=== PATIENT | female | born 1945 | race Caucasian/White ===

== ENCOUNTER 2016-08-29 18:44 | Emergency (ER) | payer MEDICARE ==
[2016-08-29 20:40] VITALS: BP 153/82
== END 2016-08-29 21:17 | disposition left against medical advice (07) ==
LOC: ED 18:44
DX: R05 Cough (principal); Z53.21 Procedure and treatment not carried out due to patient leaving prior to being seen by health care provider
CPT/HCPCS: 99281

== ENCOUNTER 2016-11-28 07:38 | Day surgery (SDC) | payer MEDICARE ==
[~2016-11-28 07:38] MED LIST: Acetaminophen TAB* 325 MG PO PRN; Buffered Lidocaine 1% SYRIN* 3 ML/SYR SYRINGE INTRADERM ONE
[2016-11-28] MEDS ORDERED: Midazolam* 1 MG/ML 5 ML VIAL (5 MG) ONE (08:50)
[2016-11-28 10:39] VITALS: BP 132/75
[2016-11-28] MEDS ORDERED: Flurbiprofen 0.03% OPTH.SOL* 2.5 ML BTL ONE (13:41)
[2016-11-28] MEDS ORDERED: Proparacaine 0.5% OPHTH.SOL* 15 ML BTL ONE (13:41)
[2016-11-28] MEDS ORDERED: Phenylephrine 2.5% OPTH.SOL* 2 ML BTL ONE (13:41)
[2016-11-28] MEDS ORDERED: Lidocaine 2% EPI 1:200000 MPF* 20 ML VIAL ONE (13:41)
[2016-11-28] MEDS ORDERED: acetaZOLAMIDE TAB* 250 MG ONE (13:41)
[2016-11-28] MEDS ORDERED: Cyclopentolate 1% OPTH.SOL* 2 ML BTL ONE (13:41)
[2016-11-28] MEDS ORDERED: Neomycin/Polymy/Dex OPTH.SUSP* MAXITROL 0.1% 5 ML ONE (13:41)
[2016-11-28] MEDS ORDERED: Povidone Iodine 5% OPTH* 30 ML BTL ONE (13:41)
[2016-11-28] MEDS ORDERED: Lidocaine 1% MPF* 2 ML VIAL ONE (13:41)
--- NOTE | 2016-11-28 13:45 | OP ---
DATE OF OPERATION: 11/28/16 - [facility] DATE OF : 49 SURGEON: Romulo Cruz M.D. PREOPERATIVE DIAGNOSIS: Cataract, left eye. POSTOPERATIVE DIAGNOSIS: Cataract, left eye. OPERATIVE PROCEDURE: Phacoemulsification, left eye with IOL. DESCRIPTION OF PROCEDURE: The patient was brought to the operating room after being given 1/2% Alcaine with epinephrine drops in the preoperative area. The eye was prepped and draped in the usual sterile fashion. Sterile drape and eyelid speculum were placed. Again, topical 1/2% Alcaine with epinephrine was given. A paracentesis incision was made at the 3 o'clock position with the No.75 blade. Clear cornea incision 2.2 x 2.2-mm was created at the 6 o'clock position starting at the anterior limbus using the 2.2-mm keratome. The anterior chamber was irrigated with 0.4 mL of 1% non-preservative intracameral lidocaine and filled with DisCoVisc. A capsulorrhexis was completed using the cystotome and the Utrata forceps. Hydrodissection was performed with balanced salt solution. The lens nucleus was removed with the Phacoemulsification handpiece without incident. Cortex was removed with the irrigation-aspiration handpiece. The capsular bag was re-inflated using DisCoVisc and an [id number] 18.5 Implant was inserted with the shooter. The irrigation-aspiration handpiece was used to remove all residual DisCoVisc. The eye was refilled with balanced salt solution and the wound checked and found to be watertight. Topical Maxitrol drops were given. [id number]/[facility] #: [id number] [facility] HOSPITALMaxim
== END 2016-11-28 10:37 | disposition home or self-care (01) ==
LOC: OREAST 07:38
PROVIDERS: ATTEND Specialist
DX: H25.12 Age-related nuclear cataract, left eye (principal); H43.393 Other vitreous opacities, bilateral; I10 Essential (primary) hypertension; E03.9 Hypothyroidism, unspecified; M19.90 Unspecified osteoarthritis, unspecified site
CPT/HCPCS: A9270-GY; J2250; V2632

== ENCOUNTER 2018-04-06 22:42 | Emergency (ER) | payer MEDICARE ==
[2018-04-06] MEDS ORDERED: Morphine INJ** 4 MG/ML 1 ML CARPUJECT IV ONE (23:11)
[2018-04-06] MEDS ORDERED: Ondansetron INJ* 2 MG/ML VIAL IV ONE (23:11)
--- NOTE | 2018-04-06 23:26 | ED ---
GI/ HPI - HPI Summary HPI Summary: 72-year-old female presents with left sided pain since 2 hours ago. She states that it started in her left flank and wraps around to her front. She denies any urgency frequency hematuria or dysuria. She states she has a history of kidney stones seen on an MRI. She has not seen urology and has never had a kidney stone move before. She admits to nausea but denies any vomiting. She admits to diarrhea all day. She denies any blood in her stool. No one else sick. She denies any fevers. Has history of thyroid disorder and high blood pressure. Denies any chest pain or shortness breath. denies any injury. no loss of bowel or bladder or saddle anaesthesia. no hx of diverticulitis or colitis. she has hx of hysterectomy and appendectomy. - History of Current Complaint Chief Complaint: EDFlankPain Time Seen by Provider: 04/06/18 23:04 Stated Complaint: BACK PAIN/DIARRHEA Pain Intensity: 6 - Allergy/Home Medications Allergies/Adverse Reactions: Allergies Allergy/AdvReac Type Severity Reaction Status Date / Time aspirin Allergy Unknown Verified 04/06/18 22:53 Reaction Details Sulfa (Sulfonamide Allergy Rash Verified 04/06/18 22:53 Antibiotics) PMH/Surg Hx/FS Hx/Imm Hx Endocrine/Hematology History: Reports: Hx Thyroid Disease - HYPO Denies: Hx Diabetes Cardiovascular History: Reports: Hx Hypertension - meds Denies: Hx Pacemaker/ICD Respiratory History: Reports: Hx Sleep Apnea Denies: Hx Asthma GI History: Reports: Hx Gastroesophageal Reflux Disease - frequent heartburn, Hx Hiatal Hernia, Other GI Disorders - cholelithlisis Denies: Hx Irritable Bowel - has frequent diarrhea History: Reports: Hx Kidney Stones - no surgery Musculoskeletal History: Reports: Hx Arthritis Sensory History: Reports: Hx Cataracts - bilat eyes, Hx Contacts or Glasses - glasses Denies: Hx Hearing Aid Opthamlomology History: Reports: Hx Cataracts - bilat eyes, Hx Contacts or Glasses - glasses Psychiatric History: Reports: Hx Anxiety, Hx Depression Denies: Hx Panic Disorder - anxiety] - Surgical History Surgery Procedure, Year, and Place: appy, hysterectomy Hx Anesthesia Reactions: No Infectious Disease History: No Infectious Disease History: Denies: Traveled Outside the [place] in Last 30 Days - Family History Known Family History: Positive: Hypertension - Social History Alcohol Use: None Substance Use Type: Reports: None Smoking Status (MU): Never Smoked Tobacco Review of Systems Negative: Fever Negative: Chest Pain Negative: Shortness Of Breath Positive: Abdominal Pain, Diarrhea, Nausea. Negative: Vomiting All Other Systems Reviewed And Are Negative: Yes Physical Exam Triage Information Reviewed: Yes Vital Signs On Initial Exam: Initial Vitals Temp Pulse Resp BP Pulse Ox 99.2 F 80 20 177/112 98 04/06/18 22:50 04/06/18 22:50 04/06/18 22:50 04/06/18 22:50 04/06/18 22:50 Vital Signs Reviewed: Yes Appearance: Positive: Well-Appearing Skin: Positive: Warm, Dry Head/Face: Positive: Normal Head/Face Inspection Eyes: Positive: Normal, Conjunctiva Clear ENT: Positive: Pharynx normal Respiratory/Lung Sounds: Positive: Clear to Auscultation, Breath Sounds Present Cardiovascular: Positive: Normal, RRR Abdomen Description: Positive: Soft, CVA Tenderness (L), Other: - tenderness LUQ Musculoskeletal: Positive: Normal Neurological: Positive: Normal Psychiatric: Positive: Normal Diagnostics - Vital Signs Vital Signs Temp Pulse Resp BP Pulse Ox 04/06/18 22:50 99.2 F 80 20 177/112 98 - Laboratory Result Diagrams: 04/06/18 23:33 04/06/18 23:33 Lab Statement: Any lab studies that have been ordered have been reviewed, and results considered in the medical decision making process. - CT abd CT Interpretation: No Acute Changes - IMPRESSION: 1. Appendectomy. 2. Hysterectomy. 3. Bilateral renal cysts. 4. Small hiatus hernia. CT Interpretation Completed By: Radiologist Re-Evaluation - Re-Evaluation First Eval Re-Evaluation Time: 01:28 Comment: patient is now vomiting, will give more zofran and toradol. Second Eval Re-Evaluation Time: 01:54 Change: Improved Comment: pain free. urine has blood and crystals so discussed may have passed kidney stone as not seen on CT. GIGU Course/Dx - Course Course Of Treatment: 72-year-old female presents with left sided pain since 2 hours ago. She states that it started in her left flank and wraps around to her front. She denies any urgency frequency hematuria or dysuria. She states she has a history of kidney stones seen on an MRI. She has not seen urology and has never had a kidney stone move before. She admits to nausea but denies any vomiting. She admits to diarrhea all day. She denies any blood in her stool. No one else sick. She denies any fevers. Has history of thyroid disorder and high blood pressure. Denies any chest pain or shortness breath. denies any injury. no loss of bowel or bladder or saddle anaesthesia. no hx of diverticulitis or colitis. she has hx of hysterectomy and appendectomy. on exam has tenderness left CVA. tenderness LUQ. no rebound. wbc 11.1. electrolytes normal. crp normal. CT shows bilateral renal cysts. discussed with patient do not have reason for pain or diarrhea on CT. could be gastroenteritis as developed vomiting in ED. urine shows crystal and blood so could have passed a stone recently. will give zofran for nausea. patient did not take blood pressure meds today so will take when gets home. patient understand and agrees with plan. - Diagnoses Differential Diagnoses - Female: Diverticulitis, Pyelonephritis, Urinary Tract Infection, Ureteral Calculi Provider Diagnoses: Flank pain, Diarrhea Discharge - Sign-Out/Discharge Documenting (check all that apply): Patient Departure - Discharge Plan Condition: Good Disposition: HOME Patient Education Materials: Flank Pain (ED) Referrals: Casey Cortes MD [Primary Care Provider] - Fco Cornell MD [Medical Doctor] - Additional Instructions: urine looks like may have passed kidney stone Drink small amounts of fluid as tolerated When able to eat follow BRAT diet: Bananas, rice, applesauce, toast take zofran every 6 hours as needed for nausea Take ibuprofen or Tylenol for pain as needed every 6 hours Follow up with primary within 5 days a referral was given for urology Return to ED if develop any new or worsening symptoms - Billing Disposition and Condition Condition: GOOD Disposition: Home
[2018-04-06 23:42] LABS: ABS Basophils 0 10^3/ul (0-0.2); ABS Eosinophils 0.2 10^3/ul (0-0.6); ABS Lymphocytes 2.1 10^3/ul (1.0-4.8); ABS Monocytes 0.7 10^3/ul (0-0.8); ABS Neutrophils 8.1 10^3/ul (1.5-7.7); ABS Nucleated RBC 0 10^3/ul; Eosinophil % 1.7 % (0-6); Hematocrit 45 % (35-47); Hemoglobin 15.1 g/dl (12.0-16.0); Lymphocyte % 18.7 % (25-47); Mean Corpuscular HGB Conc 34 g/dl (31-36); Mean Corpuscular Hemoglobin 31 pg (27-31); Mean Corpuscular Volume 92 fL (80-97); Mean Platelet Volume 9.5 um3 (7.4-10.4); Nucleated Red Blood Cells % 0.1; Platelet Count 174 10^3/ul (150-450); Red Blood Count 4.88 10^6/ul (4.00-5.40); Red Cell Distribution Width 14 % (10.5-15); White Blood Count 11.1 10^3/ul (3.5-10.8)
[2018-04-06] MEDS ORDERED: Morphine INJ* 2 MG/ML 1 ML SYRINGE (TWO MG - NEW SYRINGE VERSION) ONE (23:45)
[2018-04-06 23:59] LABS: EGFR Non-African American 58.2 (>60)
[2018-04-07] MEDS ORDERED: Iodixanol* (CONTRAST) 320 MG/ML 100 ML SDV IV ONE (00:07)
[2018-04-07] MEDS ORDERED: NS 0.9% 1000 ML* 1,000 ML IV ONE (00:11)
--- NOTE | 2018-04-07 01:15 | RAD ---
EXAM: CT Abdomen and Pelvis With Intravenous Contrast CLINICAL HISTORY: 72 years old, female; Pain; Abdominal pain; Flank; Left; Additional info: Left flank/abd pain, diarrhea TECHNIQUE: Axial computed tomography images of the abdomen and pelvis with intravenous contrast. All CT scans at this facility use at least one of these dose optimization techniques: automated exposure control; mA and/or kV adjustment per patient size (includes targeted exams where dose is matched to clinical indication); or iterative reconstruction. Coronal and sagittal reformatted images were created and reviewed. CONTRAST: 141 mL of VISi administered intravenously. COMPARISON: A/P WO CT ABD/PEL W/O 06/27/2012 10:53 AM FINDINGS: Lung bases: Unremarkable. No mass. No consolidation. Mediastinum: There is a small hiatus hernia, also present on the previous study. ABDOMEN: Liver: Unremarkable. No mass. Gallbladder and bile ducts: Unremarkable. No calcified stones. No ductal dilation. Pancreas: Unremarkable. No mass. No ductal dilation. Spleen: Unremarkable. No splenomegaly. Adrenals: Unremarkable. No mass. Kidneys and ureters: There are small right renal cortical cysts, also present on the previous study. There are 2 left renal cysts with the larger one measuring approximately 9.2 cm, also present on previous study. Stomach and bowel: Unremarkable. No obstruction. No mucosal thickening. PELVIS: Appendix: Pericecal sutures are noted, consistent with appendectomy, also present on the previous study. Bladder: The bladder is not distended and evaluation is limited but no gross bladder pathology is identified. Reproductive: The patient is status post hysterectomy, also present on the previous study. ABDOMEN and PELVIS: Intraperitoneal space: Unremarkable. No free air. No significant fluid collection. 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 No acute fracture. No dislocation. Soft tissues: Unremarkable. Vasculature: Arteriosclerotic changes are identified. No abdominal aortic aneurysm. Lymph nodes: Unremarkable. No enlarged lymph nodes. IMPRESSION: 1. Appendectomy. 2. Hysterectomy. 3. Bilateral renal cysts. 4. Small hiatus hernia.
[2018-04-07] MEDS ORDERED: Ketorolac INJ* 30 MG/ML 1 ML VIAL IV PUSH ONE (01:18)
[2018-04-07] MEDS ORDERED: Ondansetron INJ* 2 MG/ML VIAL IV ONE (01:27)
[2018-04-07 01:42] LABS: Urine Appearance Cloudy; Urine Blood 3+ (Negative); Urine Color Yellow; Urine Ketones Negative (Negative); Urine Protein Negative (Negative); Urine Red Blood Cell 2+(6-10/hpf) (Absent); Urine Specific Gravity 1.026 (1.010-1.030); Urine Urobilinogen Negative (Negative); Urine White Blood Cell Trace(0-5/hpf) (Absent)
[2018-04-07] MEDS ORDERED: Tamsulosin CAP* 0.4 MG PO ONE (01:46)
[2018-04-07] MEDS ORDERED: O ndansetron ODT 4MG 2TAB PRPK 4 MG PAK PO ONE (01:47)
[2018-04-07] MEDS ORDERED: Ondansetron ODT TAB* 4 MG ONE (02:25)
[2018-04-07 02:34] VITALS: BP 140/75
== END 2018-04-07 02:32 | disposition home or self-care (01) ==
LOC: ED 22:42
DX: R10.84 Generalized abdominal pain (principal); R19.7 Diarrhea, unspecified; M54.9 Dorsalgia, unspecified; Z88.6 Allergy status to analgesic agent; I10 Essential (primary) hypertension; R10.9 Unspecified abdominal pain
CPT/HCPCS: 36415; 74177; 80053; 81003; 81015; 83605; 83690; 85025; 86140; 87086; 96374; 96375; 99283; A9270-GY; J1885; J2270; J2405; Q9967

== ENCOUNTER → 2018-08-26 10:28 | Day surgery (SDC) | payer MEDICARE ==
[~2018-08-26 10:28] MED LIST changes: -Acetaminophen TAB* 325 MG PO PRN; -Buffered Lidocaine 1% SYRIN* 3 ML/SYR SYRINGE INTRADERM ONE; +Heparin 2 UNITS/ML IVPREMIX* 2,000 ML IV ONE; +Heparin(*) 1000 UNIT/ML 10 ML VIAL CATH LAB IV ONE; +Iohexol 350 (CONTRAST) 200 ML MDV IV ONE; +Lidocaine 1% INJ* 10 MG/ML 30 ML SDV ONE; +Midazolam* 1 MG/ML 10 ML VIAL (10 MG) ONE; +NS 0.9% 1000 ML* 1,000 ML IV SCH; +VERAPAMIL 2.5 MG/ML 2 ML VIAL ** 5 mg/2 ml ONE; +fentaNYL* 50 MCG/ML 2 ML VIAL (100 MCG VIAL) ONE; +nitroGLYCERIN DRIP* 25,000 MCG/250 ML BTL ONE
[2018-08-26 14:51] VITALS: BP 111/68
--- NOTE | 2018-08-26 20:56 | CATH ---
AMENDED REPORT TO CORRECT CC RECIPIENT CC: Dr. Casey Cortes; Dr. Keith; [facility] Financial Reporting Advisor, FAX [phone] * CATH REPORT: DATE OF PROCEDURE: 08/26/18 - [facility] CATH PRIMARY CARE PHYSICIAN: Dr. Casey Cortes. PIANO BENCH ASSEMBLER: Dr. Keith. PROCEDURES: Right radial artery access with ultrasound guidance, bilateral selective coronary cineangiography, left heart catheterization, left ventriculography. HISTORY: A 72-year-old woman with progressive limiting class II to III exertional dyspnea, stress imaging showed a moderate proximal anterior reversible defect. LV function is normal by echo. PROCEDURE ACCESS: Right radial artery. SHEATH: 6F Slender. MEDICATIONS: 1. Subcu lidocaine. 2. IV Versed. 3. IV fentanyl. 4. Heparin 3000 units. 5. Verapamil 3 mg. 6. Nitroglycerin 300 mcg IA. DIAGNOSTIC CATHETERS: 5F TIG4, 5FL4, 5F pigtail. HEMODYNAMICS: Initial AO 88/53, LV 113/5-15, no aortic valve gradient on pullback. ANGIOGRAPHY: RCA: The RCA is dominant, with a proximal rehman's crook, it has minimal luminal irregularity, supplies a moderate PDA, 2 smaller posterolaterals and ends with a large posterolateral. The RCA has no significant stenosis. Left main: The left main is normal in size, has minimal irregularity, no stenosis. LAD: The LAD is moderate, ends before the apex, it supplies a moderate mid diagonal, the LAD after the diagonal has a 20% to 30% stenosis, LAD ends at the apex, has no significant stenosis. Circumflex: The circumflex is moderate, not dominant, supplies single marginal branch which provides perfusion to the obtuse margin. The AV groove of circumflex ends with a small posterolateral branch. The circumflex has no significant stenosis. LV gram: Wall motion is normal, estimated LVEF 55% to 60%. CONCLUSION: 1. No significant obstructive coronary disease, false positive nuclear imaging study. 2. Normal left-sided hemodynamics. 3. Normal LV systolic function. 4. Successful right radial artery access. [id number]/[facility] #: [id number] MTDD
== END | disposition home or self-care (01) ==
LOC: CHICATH 10:28
PROVIDERS: ATTEND Internal Medicine Cardiovascular Disease
DX: R94.39 Abnormal result of other cardiovascular function study (principal); R06.09 Other forms of dyspnea; E66.9 Obesity, unspecified; E03.9 Hypothyroidism, unspecified; I10 Essential (primary) hypertension; K21.9 Gastro-esophageal reflux disease without esophagitis; F41.8 Other specified anxiety disorders; E74.39 Other disorders of intestinal carbohydrate absorption; Z82.49 Family history of ischemic heart disease and other diseases of the circulatory system
CPT/HCPCS: 93458; 99156; 99157; J1644; J2250; J3010

== ENCOUNTER 2019-01-12 05:52 | Inpatient (IN) | payer MEDICARE ==
[~2019-01-12 05:52] MED LIST changes: -Heparin 2 UNITS/ML IVPREMIX* 2,000 ML IV ONE; -Heparin(*) 1000 UNIT/ML 10 ML VIAL CATH LAB IV ONE; -Iohexol 350 (CONTRAST) 200 ML MDV IV ONE; -Lidocaine 1% INJ* 10 MG/ML 30 ML SDV ONE; -Midazolam* 1 MG/ML 10 ML VIAL (10 MG) ONE; -NS 0.9% 1000 ML* 1,000 ML IV SCH; +Tranexamic Acid 1,000 MG in NS 0.9% 50 ML* (outpatient use) IV SCH; -VERAPAMIL 2.5 MG/ML 2 ML VIAL ** 5 mg/2 ml ONE; -fentaNYL* 50 MCG/ML 2 ML VIAL (100 MCG VIAL) ONE; -nitroGLYCERIN DRIP* 25,000 MCG/250 ML BTL ONE
--- OUTSIDE RECORDS SUMMARY | 2019-01-12 05:55 | XMS REPORT | Continuity of Care Document ---
:1945 External Reference #:[id number] Author Name Katelynn Randlyn Care Team Providers Name Role Phone Casey Cortes MD Primary Care Physician Unavailable Payers Date Identification Numbers Payment Provider Subscriber Policy Number: [id number] Medicare Hoda Mckeon PayID: [id number] [address] [place] [address] Effective: 2012 Policy Number: [id number] Medicare Hoda Mckeon Expires: 2018 PayID: [id number] [address] [place] [address] Policy Number: [id number] [facility] Hoda Mckeon PayID: [id number] [address] [place] [address] Problems Active Problems Provider Date Disturbance in sleep behavior María Castillo MD Onset: 08/15/2015 Obesity María Castillo MD Onset: 08/15/2015 Obstructive sleep apnea syndrome Yuliana Monge DNP, RN, Onset: 09/16/2015 [facility] Hypersomnia Yuliana Monge DNP, RN, Onset: 09/16/2015 [employer] Closed fracture of nasal bones Pierce Perez M.D. Onset: 07/15/2017 Preoperative cardiovascular Tia Keith M.D. Onset: 07/15/2018 examination Family history of congenital anomaly Tia Keith M.D. Onset: 07/15/2018 of cardiovascular system Localized, primary osteoarthritis Ole Fiore M.D. Onset: 12/17/2018 Family History Date Family Member(s) Observation Comments Father Kidney stone, HTN Father Parkinson's Mother Diabetes Type II Siblings Sister thyroid nodule Siblings DM2 Siblings 2 Siblings Brother and sister; brother healthy Social History Type Date Description Comments Sex Unknown Marital Status Lives With spouse Occupation retired Tobacco Use Start: Unknown Never Smoked Cigarettes Tobacco Use Start: Unknown Never Smoked Cigars Tobacco Use Start: Unknown Never Smoked A Pipe Smoking Status Reviewed: 01/09/19 Never Smoked A Pipe Smokeless Tobacco Never Used Smokeless Tobacco ETOH Use Denies alcohol use Tobacco Use Start: Unknown Patient has never smoked Recreational Drug Use Denies Drug Use Exercise Type/Frequency Does not exercise Allergies, Adverse Reactions, Alerts Active Allergies Reaction Severity Comments Date Sulfa Antibiotics 11/11/2013 Aspirin 11/11/2013 Medications Active Medications SIG Qnty Indications Ordering Provider Date Zinc 0nce daily 30tabs Tia Keith, 07/15/2018 50mg Tablets MMichael Flonase Allergy Relief spray 1 spray in Unknown 01/02/2016 each nostril 50mcg/Act Suspension twice daily Centrum Silver 1 by mouth every Unknown 08/14/2015 Tablets day Levothyroxine Sodium 1 by mouth every 90tabs Unknown day 175mcg Tablets Sertraline HCL 1.5 by mouth 90tabs Unknown 100mg every day Tablets Losartan 1 by mouth every Unknown Potassium/Hydrochlorot day hiazide 50-12.5mg Tablets Amlodipine Besylate 1 by mouth every Unknown 5mg day Tablets Loperamide HCL take 1 capsule Unknown 2mg by mouth twice Capsules per day before meals prn Oxybutynin Chloride 1 tab PO bid Unknown 5mg Tablets History Medications Lisinopril-Hydrochlorothiazide 1 by mouth 90tabs Unknown 08/14/2015 - 20-12.5mg Tablets every day 07/09/2017 Vitamin B Super Maxi Complex one every day Unknown 08/14/2015 - my mouth 09/01/2018 Aleve 220mg as needed Unknown 08/14/2015 - Tablets 07/07/2017 Loratadine 10mg once a day for 60caps Unknown 2015 - Capsules allergies as 06/11/2018 needed Flexeril 10mg 1 po tid prn 60tabs Ole 09/17/2012 - Tablets Adebayo, 08/14/2015 Cem Meclizine HCL three times a 12tabs Unknown - 12.5mg Tablets day as needed 07/14/2017 Zinc Chelated 1 tab daily Unknown - Tablets 06/10/2018 Medications Administered in Office Medication SIG Qnty Indications Ordering Provider Date Technetium TC 99M TetrofBrendan erickson M.D. 08/12/2018 Unit Dose Up To 40 Millicuries Injection Vital Signs Date Vital Result Comment 01/09/2019 8:42am Height 62.50 inches 5'2.50" Weight 245.00 lb Heart Rate 72 /min BP Systolic Sitting 120 mmHg Rue(forearm) regular cuff BP Diastolic Sitting 76 mmHg Rue(forearm) regular cuff Respiratory Rate 16 /min O2 % BldC Oximetry 96 % BMI (Body Mass Index) 44.1 kg/m2 12/17/2018 8:50am Height 62.50 inches 5'2.50" Weight 242.25 lb Heart Rate 78 /min BP Systolic 128 mmHg BP Diastolic 78 mmHg Respiratory Rate 14 /min Pain Level 2 BMI (Body Mass Index) 43.6 kg/m2 09/18/2018 11:27am Height 63 inches 5'3" Weight 249.00 lb Heart Rate 68 /min BP Systolic Sitting 144 mmHg BP Diastolic Sitting 92 mmHg Respiratory Rate 16 /min O2 % BldC Oximetry 98 % BMI (Body Mass Index) 44.1 kg/m2 09/02/2018 11:42am Height 63 inches 5'3" Weight 253.75 lb Heart Rate 70 /min BP Systolic Sitting 110 mmHg left lower fore arm BP Diastolic Sitting 70 mmHg left lower fore arm BP Systolic Standing 108 mmHg left lower for arm BP Diastolic Standing 70 mmHg left lower for arm Respiratory Rate 14 /min BMI (Body Mass Index) 44.9 kg/m2 Ejection Fraction 55-60% echo. 07/22/18 08/22/2018 1:54pm Height 63 inches 5'3" Weight 254.00 lb with shoes Heart Rate 82 /min BP Systolic Sitting 130 mmHg Lue lg cuff BP Diastolic Sitting 80 mmHg Lue lg cuff BP Systolic Standing 124 mmHg Lue lg cuff BP Diastolic Standing 80 mmHg Lue lg cuff Respiratory Rate 18 /min BMI (Body Mass Index) 45.0 kg/m2 Ejection Fraction 55-60% date 07/22/18 ECHO 07/15/2018 11:33am Height 63 inches 5'3" Weight 263.00 lb with shoes Heart Rate 80 /min BP Systolic 110 mmHg right lower arm BP Diastolic 64 mmHg right lower arm BP Systolic Sitting 110 mmHg lue large cuff BP Diastolic Sitting 64 mmHg lue large cuff BP Systolic Standing 118 mmHg lue large cuff BP Diastolic Standing 70 mmHg lue large cuff Respiratory Rate 12 /min BMI (Body Mass Index) 46.6 kg/m2 01/06/2018 8:09am Height 63 inches 5'3" Weight 280.00 lb per pt Heart Rate 84 /min BP Systolic Sitting 126 mmHg R forearm BP Diastolic Sitting 80 mmHg R forearm Respiratory Rate 18 /min O2 % BldC Oximetry 97 % On Ra BMI (Body Mass Index) 49.6 kg/m2 07/15/2017 1:43pm Height 63 inches 5'3" Weight 270.00 lb Heart Rate 68 /min BP Systolic Sitting 126 mmHg BP Diastolic Sitting 74 mmHg Respiratory Rate 16 /min Pain Level 0 BMI (Body Mass Index) 47.8 kg/m2 01/01/2017 10:08am Height 63 inches 5'3" Weight 270.00 lb Heart Rate 78 /min BP Systolic Sitting 124 mmHg BP Diastolic Sitting 78 mmHg Respiratory Rate 16 /min O2 % BldC Oximetry 98 % BMI (Body Mass Index) 47.8 kg/m2 07/04/2016 9:46am Height 63 inches 5'3" Weight 274.00 lb Heart Rate 90 /min BP Systolic Sitting 134 mmHg BP Diastolic Sitting 80 mmHg Respiratory Rate 16 /min O2 % BldC Oximetry 95 % BMI (Body Mass Index) 48.5 kg/m2 04/04/2016 9:09am Height 63 inches 5'3" Weight 270.00 lb Heart Rate 83 /min BP Systolic 132 mmHg BP Diastolic 86 mmHg Respiratory Rate 14 /min O2 % BldC Oximetry 96 % BMI (Body Mass Index) 47.8 kg/m2 01/03/2016 9:01am Height 63 inches 5'3" Weight 265.00 lb Heart Rate 77 /min BP Systolic Sitting 138 mmHg BP Diastolic Sitting 84 mmHg Respiratory Rate 16 /min O2 % BldC Oximetry 96 % BMI (Body Mass Index) 46.9 kg/m2 11/01/2015 9:39am Height 63 inches 5'3" Weight 265.12 lb Heart Rate 92 /min BP Systolic 130 mmHg BP Diastolic 80 mmHg Respiratory Rate 14 /min O2 % BldC Oximetry 97 % BMI (Body Mass Index) 47.0 kg/m2 09/16/2015 9:35am Height 63 inches 5'3" Weight 267.25 lb Heart Rate 87 /min BP Systolic Sitting 140 mmHg BP Diastolic Sitting 80 mmHg Respiratory Rate 18 /min O2 % BldC Oximetry 98 % BMI (Body Mass Index) 47.3 kg/m2 08/15/2015 10:04am Height 63 inches 5'3" Weight 267.25 lb Heart Rate 90 /min BP Systolic Sitting 136 mmHg BP Diastolic Sitting 78 mmHg Respiratory Rate 18 /min O2 % BldC Oximetry 96 % BMI (Body Mass Index) 47.3 kg/m2 Neck Circumference in inches 16 Results Test Date Facility Test Result H/L Range Note Urine Culture And 12/31/2018 [facility] Urine Culture SEE RESULT [address] [place] [address] [phone] Type & Screen 12/31/2018 [facility] Patient Blood A Positive [address] [place] [address] [phone] Antibody Screen NEGATIVE Laboratory test 12/31/2018 [facility] Partial 35.6 seconds N 26.0-38.[address] [place] [address] PTT [phone] Urinalysis 12/31/2018 [facility] Urine Color Yellow Profile [address] [place] [address] [phone] Urine Appearance Cloudy Urine Specific [place] 1.018 N 1.010-1.030 Urine pH 5.0 N 5-9 Urine Urobilinogen Negative Negative Urine Ketones Negative Negative Urine Protein Negative Negative Urine Leukocytes Negative Negative Urine Blood 1+ Abnormal Negative Urine Nitrite Negative Negative Urine Bilirubin Negative Negative Urine Glucose Negative Negative Urine White Blood Cell Trace(0-5/hpf) Absent Urine Red Blood Cell Trace(0-2/hpf) Absent Urine Bacteria Absent Absent Urine Squamous Epithelial Cell Present Abnormal Absent Urine Hyaline Casts Present Abnormal Absent Comp Metabolic Panel 12/31/2018 [facility] Sodium 140 mmol/L N 135-[address] [place] [address] [phone] Potassium 4.0 mmol/L N 3.5-5.0 Chloride 105 mmol/L N 101-111 Co2 Carbon Dioxide 26 mmol/L N 22-32 Anion Gap 9 mmol/L N 2-11 Glucose 97 mg/dL N 70-100 Blood Urea Nitrogen 20 mg/dL N 6-24 Creatinine 0.85 mg/dL N 0.51-0.95 BUN/Creatinine Ratio 23.5 High 8-20 Calcium 11.1 mg/dL High 8.6-10.3 Total Protein 7.3 g/dL N 6.4-8.9 Albumin 4.5 g/dL N 3.2-5.2 Globulin 2.8 g/dL N 2-4 Albumin/Globulin Ratio 1.6 N 1-3 Total Bilirubin 0.60 mg/dL N 0.2-1.0 Alkaline Phosphatase 106 U/L High 34-104 Alt 17 U/L N 7-52 Ast 21 U/L N 13-39 Egfr Non- 65.9 >60 Egfr 79.8 >60 2 Inr/Protime 12/31/2018 [facility] Inr 1.02 N 0.82-1.[address] [place] [address] [phone] CBC Auto Diff 12/31/2018 [facility] White Blood 6.8 10^3/uL N 3.5-10.[address] [place] [address] [phone] Red Blood Count 4.95 10^6/uL High 3.70-4.87 Hemoglobin 15.4 g/dL N 12.0-16.0 Hematocrit 46 % N 35-47 Mean Corpuscular Volume 93 fL N 80-97 Mean Corpuscular Hemoglobin 31 pg N 27-31 Mean Corpuscular HGB Conc 34 g/dL N 31-36 Red Cell Distribution Width 14 % N 10.5-15 Platelet Count 177 10^3/uL N 150-450 Mean Platelet Volume 9.5 fL N 7.4-10.4 Abs Neutrophils 4.4 10^3/uL N 1.5-7.7 Abs Lymphocytes 1.7 10^3/uL N 1.0-4.8 Abs Monocytes 0.5 10^3/uL N 0-0.8 Abs Eosinophils 0.1 10^3/uL N 0-0.6 Abs Basophils 0.0 10^3/uL N 0-0.2 Abs Nucleated RBC 0.0 10^3/uL Granulocyte % 64.4 % Lymphocyte % 25.6 % Monocyte % 7.9 % Eosinophil % 1.8 % Basophil % 0.3 % Nucleated Red Blood Cells % 0.1 Laboratory test 08/23/2018 [facility] LDL Cholesterol 115 mg/dL [address] [place] [address] [phone] Cath Panel 08/23/2018 [facility] Partial Thrombo 32.6 seconds N 26.0- [address] Time PTT 36.3 [place] [address] [phone] CBC Auto Diff 08/23/2018 [facility] White Blood Count 8.0 10^3/ uL N 3.5-[address] 0.8 [place] [address] [phone] Red Blood Count 5.04 10^6/uL N 4.00-5.40 Hemoglobin 15.6 g/dL N 12.0-16.0 Hematocrit 47 % N 35-47 Mean Corpuscular Volume 93 fL N 80-97 Mean Corpuscular Hemoglobin 31 pg N 27-31 Mean Corpuscular HGB Conc 33 g/dL N 31-36 Red Cell Distribution Width 15 % N 10.5-15 Platelet Count 162 10^3/uL N 150-450 Mean Platelet Volume 10.3 fL N 7.4-10.4 Abs Neutrophils 4.9 10^3/uL N 1.5-7.7 Abs Lymphocytes 2.4 10^3/uL N 1.0-4.8 Abs Monocytes 0.6 10^3/uL N 0-0.8 Abs Eosinophils 0.1 10^3/uL N 0-0.6 Abs Basophils 0 10^3/uL N 0-0.2 Abs Nucleated RBC 0 10^3/uL Granulocyte % 61.5 % Lymphocyte % 29.5 % Monocyte % 7.1 % Eosinophil % 1.5 % Basophil % 0.4 % Nucleated Red Blood Cells % 0.2 Inr/Protime 08/23/2018 [facility] Inr 0.98 N 0.77-1.[address] [place] [address] [phone] Basic Metabolic 08/23/2018 [facility] Sodium 142 mmol/L N 135- [address] [place] [address] [phone] Potassium 3.7 mmol/L N 3.5-5.0 Chloride 106 mmol/L N 101-111 Co2 Carbon Dioxide 24 mmol/L N 22-32 Anion Gap 12 mmol/L High 2-11 Glucose 93 mg/dL N 70-100 Blood Urea Nitrogen 18 mg/dL N 6-24 Creatinine 0.76 mg/dL N 0.51-0.95 BUN/Creatinine Ratio 23.7 High 8-20 Calcium 10.9 mg/dL High 8.6-10.3 Egfr Non- 75.2 >60 Egfr 91.0 >60 5 1,25 Dihydroxy Vitamin 08/23/2018 [facility] Calcitriol 63 pg/ mL 18-78 [address] [place] [address] [phone] 1 SEE RESULT BELOW Name: HODA MCKEON : [address]: Ole Fiore MD Acct: [id number] Unit: [id number] AGE: 73 Location: [facility] Re12/31/18 SEX: F Status: REG REF SPEC: [id number] SHIRA: 12/31/18-1015 [facility] DR: Ole Fiore MD REQ: [id number] RECD: 12/31/18 STATUS: MAIA STONE DR: Casey Cortes MD _ SOURCE: URINE SPDESC: ORDERED: Urine Culture QUERIES: Urine Source: Clean Catch Procedure Result Reported Site Urine Culture Final 01/01/19- 0858 ML No growth of clinically significant organisms * ML - Main Lab . END OF REPORT DEPARTMENT OF PATHOLOGY, [address] [place] [address] Fahad Lama M.D. Director [facility] # [id number] 2 Because ethnic data is not always readily available, this report includes an eGFR for both -Americans and non- Americans. The National Kidney Disease Education Program (NKDEP) does not endorse the use of the MDRD equation for patients that are not between the ages of 18 and 70, are , have extremes of body size, muscle mass, or nutritional status, or are non- or non-. According to the National Kidney Foundation, irrespective of diagnosis, the stage of the disease is based on the level of kidney function: Stage Description GFR(mL/min/1.73 m(2)) 1 Kidney damage with normal or decreased GFR 90 2 Kidney damage with mild decrease in GFR 60-89 3 Moderate decrease in GFR 30-59 4 Severe decrease in GFR 15-29 5 Kidney failure <15 (or dialysis) 3 Standard intensity warfarin therapeutic range: 2.0-3.0 High intensity warfarin therapeutic range: 2.5-3.5 4 Desirable: <100 Near Optimal: 100-129 Borderline High: 130-159 High: 160-189 Very High: >189 5 Because ethnic data is not always readily available, this report includes an eGFR for both -Americans and non- Americans. The National Kidney Disease Education Program (NKDEP) does not endorse the use of the MDRD equation for patients that are not between the ages of 18 and 70, are , have extremes of body size, muscle mass, or nutritional status, or are non- or non-. According to the National Kidney Foundation, irrespective of diagnosis, the stage of the disease is based on the level of kidney function: Stage Description GFR(mL/min/1.73 m(2)) 1 Kidney damage with normal or decreased GFR 90 2 Kidney damage with mild decrease in GFR 60-89 3 Moderate decrease in GFR 30-59 4 Severe decrease in GFR 15-29 5 Kidney failure <15 (or dialysis) 6 ADDITIONAL INFORMATION This test was developed and its performance characteristics determined by [facility] in a manner consistent with CLIA requirements. This test has not been cleared or approved by the U.S. Food and Drug Administration. Test Performed by: [facility] [address] [place] [address] Procedures Date Code Description Status 08/26/2018 60551 Left Heart Cath. Incl S/I Coronaries, Angio S/I V Gram If Completed Done 08/12/2018 10624 Stress Test Completed 07/22/2018 84091 ECHO Transthoracic, Real-Time 2D With Doppler And Color Completed Flow 07/22/2018 57964 ECHO Transthoracic, Real-Time 2D With Doppler And Color Completed Flow 07/15/2018 88506 EKG Tracing & Interpretation Completed 08/23/2015 56712 Polysomnography Sleep Staging 4+ Parameters Completed 09/17/2012 67940 Rad Exam; Hip Unilat Completed 09/17/2012 82896 Rad Exam; Hip Unilat Completed 09/17/2012 06385 Rad Exam; Pelvis Completed Encounters Type Date Location Provider Dx Diagnosis Office Visit 01/09/2019 Pulmonology And Benoit Marie7.33 Obstructive sleep 8:30a Sleep Services Of DENNIS BIGGS, BINDU-CARMEN apnea (adult) [facility] (pediatric) E66.9 Obesity, unspecified Z68.41 Body mass index (BMI) 40.0-44.9, adult Office Visit 12/17/2018 Orthopedic Ole M17.11 Unilateral primary 8:30a Services Of Cem Fiore osteoarthritis, C.[facility]. right knee Office Visit 09/18/2018 Pulmonology And Yuliana Zurita.33 Obstructive sleep 11:30a Sleep Services DIAN Monge, apnea (adult) Of [facility] RNPHONG (pediatric) Z68.41 Body mass index (BMI) 40.0-44.9, adult Office Visit 09/02/2018 11:30a [facility] Lashell Angela E66.01 Morbid ( severe) Of [facility] Abhay N.P. 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 function study R06.02 Shortness of breath Z82.49 Family hx of ischem heart dis and oth dis of the circ sys Office Visit 07/15/2018 [place] Keith, Z01.810 Encounter for 11:45a Cardiology Jr Priest preprocedural [facility] cardiovascular examination E66.01 Morbid (severe) obesity due to excess calories R06.02 Shortness of breath Z82.49 Family hx of ischem heart dis and oth dis of the circ sys Z68.42 Body mass index (BMI) 45.0-49.9, adult Office Visit 01/06/2018 Pulmonology And Yuliana G47.33 Obstructive sleep 8:00a Sleep Services Of DIAN Monge RN, apnea (adult) [facility] [employer]-BC (pediatric) E66.01 Morbid (severe) obesity due to excess calories Z68.42 Body mass index (BMI) 45.0-49.9, adult Office Visit 07/15/2017 ENT Services Of Pierce S02.2xxA Fracture of 1:45p C.M.A. AT Cem Perez nasal bones, [place] init encntr for closed fracture Office Visit 01/01/2017 Pulmonology And Yuliana G47.33 Obstructive 10:00a Sleep Services Of DIAN Monge RN, sleep apnea 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 [employer] PROFESSOR-BC (pediatric) E66.01 Morbid (severe) obesity due to excess calories Z68.42 Body mass index (BMI) 45.0-49.9, adult Office Visit 04/04/2016 Pulmonology And Yuliana G47.33 Obstructive sleep 9:00a Sleep Services Of DIAN Monge RN, apnea (adult) [facility] EN[employer] PROFESSOR-BC (pediatric) G47.00 Insomnia, unspecified E66.01 Morbid (severe) obesity due to excess calories Z68.42 Body mass index (BMI) 45.0-49.9, adult Office Visit 01/03/2016 Pulmonology And Yuliana G47.33 Obstructive sleep 9:00a Sleep Services Of DIAN Monge RN, apnea (adult) [facility] [employer]SERVATION PROFESSOR-BC (pediatric) G47.10 Hypersomnia, unspecified E66.01 Morbid (severe) obesity due to excess calories Office Visit 11/01/2015 Pulmonology And Yuliana G47.33 Obstructive sleep 9:30a Sleep Services Of DIAN Monge RN, apnea (adult) [facility] EN[employer] PROFESSOR-BC (pediatric) E66.09 Other obesity due to excess calories Office Visit 09/16/2015 Pulmonology And Yuliana G47.33 Obstructive sleep 9:30a Sleep Services Of Monge, DNP, RN, apnea (adult) [facility]- (pediatric) Office Visit 08/15/2015 Pulmonology And María Castillo, G47.9 Sleep disorder, 10:15a Sleep Services Of unspecified [facility] E66.09 Other obesity due to excess calories Office Visit 10/24/2012 Orthopedic Ole 715.15 Osteoarthrosis 9:15a Services Of Cem Fiore Localized Prim C.M.A. Pelvic & Thigh 726.5 Enthesopathy Of Hip Region Office Visit 09/17/2012 10:00a Orthopedic Ole Fiore, 843.9 Sprains & Services Of Emmanuelle Priest Strains Hip & Thigh Unspec Site 719.45 Pain Joint Pelvic Region & Thigh Plan of Treatment Future Appointment(s):07/13/2019 10:00 am - Yuliana Monge DNP, RN, [facility]- at Pulmonology [facility] Sleep Services Of [facility]01/12/2019 7:30 am - LILIYA Gonzalez at Orthopedic Services Of [facility].01/12/2019 7:30 am - Ole Fiore M.D. at Orthopedic Services Of [facility]02/11/2019 9:30 am - Ole Fiore M.D. at Orthopedic Services Of [facility].12/17/2018 - Ole Fiore M.D.M17.11 Unilateral primary osteoarthritis, right kneeFollow up:4 weeks after surgery
--- OUTSIDE RECORDS SUMMARY | 2019-01-12 05:55 | XMS REPORT | Continuity of Care Document ---
:1945 External Reference #:[id number] Author Name Guerda Hastings Care Team Providers Name Role Phone Casey Cortes MD Primary Care Physician Unavailable Payers Date Identification Numbers Payment Provider Subscriber Policy Number: [id number] Medicare Hoda Mckeon PayID: [id number] [address] [place] [address] Effective: 2012 Policy Number: [id number] Medicare Hoda Mckeon Expires: 2018 PayID: [id number] [address] [place] [address] Policy Number: [id number] [facility] Hoda Mckeon PayID: [id number] [address] [place] [address] Problems Active Problems Provider Date Disturbance in sleep behavior María Castillo MD Onset: 08/15/2015 Obesity María Castillo MD Onset: 08/15/2015 Obstructive sleep apnea syndrome Yuliana Monge DNP, RN, Onset: 09/16/2015 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 Hypersomnia Yuliana Monge DNP RN, Onset: 09/16/2015 [employer]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 Closed fracture of nasal bones Pierce Perez [...] Never Smoked A Pipe Smoking Status Reviewed: 12/17/18 Never Smoked A Pipe Smokeless Tobacco Never [...] daily 30tabs Tia Keith, 07/15/2018 50mg Tablets M.DLarry Flonase Allergy Relief spray 1 spray in [...] Injection Vital Signs Date Vital Result Comment 12/17/2018 8:50am Height 62.50 inches 5'2.50" Weight [...] Date Facility Test Result H/L Range Note Laboratory test [facility] LDL Cholesterol 115 mg/dL 1 finding [address] [place] [address] [phone] Cath Panel [facility] Partial Thrombo 32.6 seconds N 26.0-36.[address] [place] [address] [phone] CBC Auto Diff [facility] White Blood 8.0 10^3/uL N 3.5-10.[address] [place] [address] [phone] Red Blood Count 5.04 10^6/uL N 4.00-5.40 [...] Red Blood Cells % 0.2 Inr/Protime 08/23/2018 [facility] Inr 0.98 N 0.77-1.[address] [place] [address] [phone] Basic Metabolic 08/23/2018 [facility] Sodium 142 mmol/L N 135- 145 Panel [address] [place] [address] [phone] Potassium 3.7 mmol/L N 3.5-5.0 Chloride 106 mmol/L N 101-111 Co2 Carbon Dioxide 24 mmol/L N 22-32 Anion Gap 12 mmol/L High 2-11 Glucose 93 mg/dL N 70-100 Blood Urea Nitrogen 18 mg/dL N 6-24 Creatinine 0.76 mg/dL N 0.51-0.95 BUN/Creatinine Ratio 23.7 High 8-20 Calcium 10.9 mg/dL High 8.6-10.3 Egfr Non- 75.2 >60 Egfr 91.0 >60 2 1,25 Dihydroxy Vitamin 08/23/2018 [facility] Calcitriol 63 pg/ mL 18-78 3 D [address] [place] [address] [phone] 1 Desirable: <100 Near Optimal: 100-129 Borderline High: 130-159 High: 160-189 Very High: >189 2 Because ethnic data is not always [...] 5 Kidney failure <15 (or dialysis) 3 ADDITIONAL INFORMATION This test was developed and its performance characteristics determined by [facility] in a manner consistent with CLIA requirements. This test has not been cleared or approved by the U.S. Food and Drug Administration. Test Performed by: [facility] [address] [place] [address] Procedures Date Code Description Status 08/26/2018 07723 Left Heart Cath. Incl S/I Coronaries, Angio S/I V Gram If Completed Done 08/12/2018 77713 Stress Test Completed 07/22/2018 92866 ECHO Transthoracic, Real-Time 2D With Doppler And Color Completed Flow 07/22/2018 16483 ECHO Transthoracic, Real-Time 2D With Doppler And Color Completed Flow 07/15/2018 89641 EKG Tracing & Interpretation Completed 08/23/2015 26308 Polysomnography Sleep Staging 4+ Parameters Completed 09/17/2012 22501 Rad Exam; Hip Unilat Completed 09/17/2012 18264 Rad Exam; Hip Unilat Completed 09/17/2012 45338 Rad Exam; Pelvis Completed Encounters Type Date Location Provider Dx Diagnosis Office Visit 09/18/2018 Pulmonology And Yuliana Monge, G47.33 Obstructive sleep 11:30a [facility], RN, 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 obesity due to excess calories Z01.810 Encounter for preprocedural cardiovascular examination R94.39 Abnormal result of other cardiovascular function study I25.10 Athscl heart disease of [place] coronary artery w/o ang pctrs Z68.41 Body mass index (BMI) 40.0-44.9, adult Office Visit 08/22/2018 Harvey Keith, R94.39 Abnormal result of 2:00p Cardiology Jr Priest other cardiovascular [facility] function study R06.02 Shortness of breath Z82.49 Family hx of ischem heart dis and oth dis of the [facility] Office Visit 07/15/2018 Harvey Keith, Z01.810 Encounter for 11:45a Cardiology Jr Priest preprocedural [facility] cardiovascular examination E66.01 Morbid (severe) obesity due to excess calories R06.02 Shortness of breath Z82.49 Family hx of ischem heart dis and oth dis of the [facility] Z68.42 Body mass index (BMI) 45.0-49.9, adult Office Visit 01/06/2018 Pulmonology And Yuliana G47.33 Obstructive sleep 8:00a [facility] Monge RN, apnea (adult) [facility] 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 (pediatric) E66.01 Morbid (severe) obesity due to excess calories Z68.42 Body mass index (BMI) 45.0-49.9, adult Office Visit 07/15/2017 [facility] S02.2xxA Fracture of 1:45p [facility] 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) (pediatric) E66.01 Morbid (severe) obesity due to excess calories Z68.42 Body mass index (BMI) 45.0-49.9, adult Office Visit 07/04/2016 Pulmonology And Yuliana G47.33 Obstructive sleep 9:30a [facility] Monge RN, apnea (adult) 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 (pediatric) E66.01 Morbid (severe) obesity due to excess calories Z68.42 Body mass index (BMI) 45.0-49.9, adult Office Visit 04/04/2016 Pulmonology And Yuliana G47.33 Obstructive sleep 9:00a [facility] Monge RN, apnea (adult) 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 (pediatric) G47.00 Insomnia, unspecified E66.01 Morbid (severe) obesity due to excess calories Z68.42 Body mass index (BMI) 45.0-49.9, adult Office Visit 01/03/2016 Pulmonology And Yuliana G47.33 Obstructive sleep 9:00a [facility] Monge RN, apnea (adult) 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 (pediatric) G47.10 Hypersomnia, unspecified E66.01 Morbid (severe) obesity due to excess calories Office Visit 11/01/2015 Pulmonology And Yuliana G47.33 Obstructive sleep 9:30a [facility] Monge RN, apnea (adult) 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 (pediatric) E66.09 Other obesity due to excess calories Office Visit 09/16/2015 Pulmonology And Yuliana G47.33 Obstructive sleep 9:30a [facility] Monge, RN, apnea (adult) [facility] (pediatric) Office Visit 08/15/2015 Pulmonology And María Castillo, G47.9 Sleep disorder, 10:15a Sleep Services Of unspecified [facility] E66.09 Other obesity due to excess calories Office Visit 10/24/2012 Orthopedic Ole 715.15 Osteoarthrosis 9:15a Services Of Cem Fiore Localized Prim [facility].A. Pelvic & Thigh 726.5 Enthesopathy Of Hip Region Office Visit 09/17/2012 10:00a Orthopedic Ole Fiore, 843.9 Sprains & Services Of Emmanuelle Priest Strains Hip & Thigh Unspec Site 719.45 Pain Joint Pelvic Region & Thigh Plan of Treatment Future Appointment(s):02/11/2019 9:30 am - Ole Fiore M.D. at [facility]03/20/2019 9:30 am - Yuliana Monge DNP, RN, PART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 at [facility]ology [facility]12/17/2018 - Ole Fiore M.D.M17.11 Unilateral primary osteoarthritis, right kneeFollow up:4 weeks after surgery
[2019-01-12] MEDS ORDERED: Gabapentin CAP(*) 300 MG PO ONE (06:00)
[2019-01-12] MEDS ORDERED: Lactated Ringers 1000 ML Bag* 1,000 ML IV SCH ×2 (06:00→10:00)
[2019-01-12] MEDS ORDERED: Gabapentin CAP(*) 100 MG ONE (06:41)
[2019-01-12] MEDS ORDERED: ceFAZolin 2 GM PREMIX in ORs 2 GM/50 ML BAG ONE (06:42)
[2019-01-12] MEDS ORDERED: Buffered Lidocaine 1% SYRIN* 1 ML/SYRINGE INTRADERM ONE (06:42)
[2019-01-12] MEDS ORDERED: fentaNYL* 50 MCG/ML 2 ML VIAL (100 MCG VIAL) ONE (07:01)
[2019-01-12] MEDS ORDERED: Midazolam* 1 MG/ML 2 ML VIAL (2 MG) ONE ×2 (07:02→07:34)
[2019-01-12] MEDS ORDERED: Bupivacaine 0.5%* 50 ML VIAL ONE (07:05)
[2019-01-12] MEDS ORDERED: Lidocaine 1% MPF wEPI 200,000* 30 ML SDV ONE (07:05)
[2019-01-12] MEDS: Buffered Lidocaine 1% SYRIN* 1 ML/SYRINGE INTRADERM ONE ×2 (07:07→12:09)
[2019-01-12] MEDS ORDERED: Famotidine IV* 10 MG/ML 2 ML (20 mg) ONE (07:13)
[2019-01-12] MEDS ORDERED: ROPIVACAINE 5 MG/ML 30 ML BTL (0.5%) ONE (07:16)
[2019-01-12] MEDS ORDERED: Bupivacaine 0.5% SDV PF* 30ML VIAL ONE (07:35)
[2019-01-12] MEDS ORDERED: EPHEDrine (Pressors)* 50 MG/ML VIAL ONE (07:54)
[2019-01-12] MEDS ORDERED: Lidocaine 2% PF * 5 ML VIAL ONE (07:58)
[2019-01-12] MEDS ORDERED: Acetaminophen IV 1GM/100ML * 100 ML ONE (07:58)
[2019-01-12] MEDS ORDERED: diPHENhydraMINE IV* 50 MG/ML 1 ml VIAL (BENADRYL) ONE (08:26)
[2019-01-12] MEDS ORDERED: Ketorolac INJ* 30 MG/ML 1 ML VIAL ONE (08:26)
[2019-01-12] MEDS ORDERED: Bupivacaine 0.5% W/EPI SDV* 30 ML VIAL ONE (08:31)
[2019-01-12] MEDS ORDERED: Ondansetron INJ* 2 MG/ML VIAL IV PRN ×2 (08:55→09:50)
[2019-01-12] MEDS ORDERED: fentaNYL* 50 MCG/ML 2 ML VIAL (100 MCG VIAL) IV PRN (08:55)
[2019-01-12] MEDS ORDERED: Naloxone* 0.4 MG/ML 1 ML VIAL IV PRN (08:55)
[2019-01-12] MEDS ORDERED: HYDROcodone/ACETAMIN 5-325 MG* 1 TAB PO PRN (08:55)
[2019-01-12] MEDS ORDERED: DiMENhydriNATE IV* 50 MG/ML VIAL IV PUSH PRN (08:55)
[2019-01-12] MEDS ORDERED: PROCHLORPERAZINE INJ 5 MG/ML 2 ML VIAL IV PRN (08:55)
[2019-01-12] MEDS ORDERED: Magnesium Hydroxide LIQ* 30 ML UDC PO PRN (09:44)
[2019-01-12] MEDS ORDERED: diPHENhydraMINE IV* 50 MG/ML 1 ml VIAL (BENADRYL) IV PRN (09:50)
[2019-01-12] MEDS ORDERED: diPHENhydraMINE PO* 25 MG PO PRN (09:50)
[2019-01-12] MEDS ORDERED: Bisacodyl SUPP* 10 MG SUPP PR PRN (09:50)
[2019-01-12] MEDS ORDERED: Polyethylene Glycol 3350* 17 GM PACKET PO PRN (09:50)
[2019-01-12] MEDS ORDERED: Morphine 4 MG/ML VIAL (1 ml) 4 MG/ML VIAL IV PRN (09:50)
[2019-01-12] MEDS ORDERED: Cyclobenzaprine TAB* 10 MG PO PRN ×2 (09:50→13:19)
[2019-01-12] MEDS ORDERED: Fluticasone NASAL SPRAY 50MCG* 16 gm SPRAY BTL BOTH NARES PRN (09:55)
--- NOTE | 2019-01-12 11:02 | OP ---
DATE OF OPERATION: 01/12/19 - ROOM #343 DATE OF : 49 ATTENDING SURGEON: Ole Fiore MD. DRY CLEANING MANAGER: Dorinda Butler RPA. ANESTHESIA: Spinal and regional and sedation. PRE-OP DIAGNOSIS: Osteoarthritis, right knee. POST-OP DIAGNOSIS: Osteoarthritis, right knee. OPERATIVE PROCEDURE: Right total knee arthroplasty. ESTIMATED BLOOD LOSS: Less than 50 cc. COMPLICATIONS: None. SUMMARY: Mrs. Mckeon is a 73-year-old female who has had a history of troubles with her right knee. She had recently re-presented to the office and we had talked about different treatments for the knee, but considering she was bone-on- bone by x-ray in the medial compartment, I discussed with her that she would be a candidate for a total knee arthroplasty. After discussing the different treatments for her knee, she was very interested in knee replacement surgery. Risks such as infection, scar formation, stiffness, DVT, pulmonary embolism, hardware failure, and continued pain were some of the risks discussed. She had been declared medially optimized and wished to proceed. DESCRIPTION OF PROCEDURE: The patient had a femoral nerve block placed in the holding area. She was brought back to the OR and spinal anesthesia was then introduced. Medina catheter was placed. Tourniquet was placed over the proximal right thigh and was used during the case. Total tourniquet time would be 57 minutes. The right knee was prepped and then draped. Esmarch was used to exsanguinate the leg and the tourniquet was raised. A midline incision was made beginning just medial to the tibial tubercle and carried about 3 to 4 cm above the superior pole of the patella. Incision was carried down through the skin and subcutaneous fat. Small bleeders encountered were ligated using electrocautery and extensor mechanism was exposed. Sharp parapatellar arthrotomy was made. Quite a bit of clear yellowish joint fluid was encountered. Soft tissues were sharply elevated from the medial side of the tibia and the fat pad was sharply excised. Patella measured 20 mm in thickness and a nice 9 mm cut was taken. Patella was then easily subluxated laterally and the knee was flexed up. Nice exposure to the distal femur was obtained. A step drill was used to open the femoral canal and an intramedullary guide was placed. Outrigger was adjusted until it was parallel with her epicondyles and then pinned into place. Distal femoral cutting guide was then pinned into place and intramedullary guide was removed. The intramedullary guide had been set at 2 degrees and to resect 2 mm of bone as she had quite the exuberant medial femoral condyle. Femoral cut was taken and it appeared a nice cut was obtained. Femur was sized and she sat nicely for a 4. Holes were drilled and the positioning superiorly and inferiorly was adjusted until it appeared that I would not notch the anterior cortex of her femur. Anterior and posterior femoral cuts followed by chamfer cuts were taken and she was not notched. Attention was turned to the tibia. Step drill was used to open the tibial canal and an intramedullary guide was placed. Outriggers were assembled and adjusted until it appeared it would take 2 mm from her worn medial side. A cutting guide was then pinned into place and a tibial cut was taken. Again, it appeared a nice cut was obtained. Spacer block was placed and with placing the block, she sat essentially perfectly. Proximal tibia was then sized and an E seemed to fit not very nicely. Proximal tibia was drilled and then punched. Notch cut was finished using the notch cut finishing guide and the stud holes were drilled. She was trialed with the 4 and the E with a 10 mm poly and came out nicely into full extension, flexed well, and was stable throughout. Patella tracking was perfect. Patella sized at a 32 and holes were drilled and trial was snapped into place. Patella tracking was still perfect. Trial instrumentation was removed and the knee was copiously pulse lavaged. Cement was being prepared; 10 cc of 0.25% Marcaine with epinephrine was injected into behind the medial femoral condyle, another 10 behind the lateral femoral condyle , and another 10 into the lateral gutter. Tibia followed by femur and patella were all cemented into place. Excess cement was removed and the cement was allowed to harden. Once the cement had hardened, she was trialed again with a 10 and had the same wonderful motion and stability. The knee was again copiously pulse lavaged and searched for excess cement and a few small pieces were found. Polyethylene was then snapped into place. The knee was again pulse lavaged and a parapatellar arthrotomy was repaired using interrupted #1 Vicryl sutures. Tourniquet was let down and no significant bleeding was encountered. With flexion and extension, the repair held nicely. Knee was again copiously pulse lavaged. Subcutaneous tissue was reapproximated with 2-0 Vicryl. Skin was closed using won. Sterile dressing and a cryo/Cuff were applied in the OR. The patient was then awakened, stable on transfer to the recovery room. [id number]/CPS #: [id number] MTDD
[2019-01-12] MEDS: traMADol TAB* 50 MG PO PRN ×2 (12:17→20:09)
[2019-01-12] MEDS: oxyCODONE TAB* 5 MG TAB PO PRN ×3 (12:56→23:06)
[2019-01-12] MEDS: Acetaminophen TAB* 325 MG PO SCH ×2 (14:34→22:39)
[2019-01-12] MEDS: ceFAZolin 1 GM ADVAN(*) 1 GM in NS 0.9% 50 ML* 50 ML IVPB SCH ×2 (16:25→23:06)
[2019-01-12] MEDS ORDERED: Loperamide CAP* 2 MG PO SCH (17:00)
[2019-01-12] MEDS ORDERED: Warfarin TAB(*) 6 MG PO ONE (17:00)
[2019-01-12] MEDS: Levothyroxine TAB* 175 MCG TAB PO SCH (17:18)
[2019-01-12] MEDS: Oxybutynin TAB* 5 MG PO SCH (17:19)
[2019-01-12] MEDS: Sertraline* 100 MG TAB PO SCH (17:19)
[2019-01-12] MEDS: ZINC GLUCONATE 50 MG PO SCH (17:23)
[2019-01-12] MEDS: Losartan TAB* 25 MG PO SCH (18:42)
[2019-01-12] MEDS: Hydrochlorothiazide TAB* 25 MG PO SCH (18:42)
[2019-01-12] MEDS: amLODIPine TAB* 5 MG PO SCH (18:42)
[2019-01-12] MEDS: Docusate CAP* 100 MG PO SCH (20:10)
[2019-01-12] MEDS: Magnesium Hydroxide LIQ* 30 ML UDC PO SCH (20:11)
[2019-01-13] MEDS: oxyCODONE TAB* 5 MG TAB PO PRN ×3 (03:55→22:52)
[2019-01-13 05:02] LABS: Hematocrit 37 % (35-47); Hemoglobin 12.6 g/dL (12.0-16.0); Mean Platelet Volume 9.4 fL (7.4-10.4); Platelet Count 150 10^3/uL (150-450)
[2019-01-13 05:06] LABS: INR 1.03 (0.82-1.09)
[2019-01-13 05:16] LABS: BUN/Creatinine Ratio 21.7 (8-20); Calcium 9.9 mg/dL (8.6-10.3); EGFR Non-African American 67.8 (>60); Potassium 3.9 mmol/L (3.5-5.0)
[2019-01-13] MEDS: Acetaminophen TAB* 325 MG PO SCH ×3 (06:25→22:48)
[2019-01-13] MEDS: ceFAZolin 1 GM ADVAN(*) 1 GM in NS 0.9% 50 ML* 50 ML IVPB SCH (08:09)
[2019-01-13] MEDS: Magnesium Hydroxide LIQ* 30 ML UDC PO SCH ×2 (08:13→20:24)
[2019-01-13] MEDS: Docusate CAP* 100 MG PO SCH ×2 (08:13→20:23)
[2019-01-13] MEDS: Heparin VIAL(*) 5000 UNITS/ML VIAL (FIVE THOUSAND) SUBCUT SCH ×3 (08:14→22:53)
[2019-01-13] MEDS: traMADol TAB* 50 MG PO PRN ×3 (08:15→20:23)
--- NOTE | 2019-01-13 08:32 | PN ---
Subjective - Subjective Reason for Note: Consultation Note History: Internal medicine consultation. 1 day post right total knee arthroplasty. She is eating breakfast with gusto. She has managed to walk with a frame and had her Medina catheter removed. She has no pain at rest. She has pain in her right hip from OA, her knee hurts now that the anesthesia has worn off. She has had no other problems - she has a good appetite. She has no fever, sweats or chills. She denies chest pain, palpitations. She has no cough/sputum Active Problems: Active Problems History of total knee arthroplasty (Acute) Z96.659 Atherosclerosis (Chronic) I70.90 BMI 40.0-44.9, adult (Chronic) Z68.41 Depression (Chronic) F32.9 Essential (primary) hypertension (Chronic) I10 GERD (gastroesophageal reflux disease) (Chronic) K21.9 Hypothyroid (Chronic) E03.9 Nephrolithiasis (Chronic) N20.0 Osteoarthritis of right hip (Chronic) M16.11 Prediabetes (Chronic) R73.03 Primary hyperparathyroidism (Chronic) E21.0 Sleep apnea (Chronic) G47.30 Current Medications: Current Medications Acetaminophen (Tylenol Tab*) 975 mg PO Q8HR [facility] Last Admin: 01/13/19 06:25 Dose: 975 mg Amlodipine Besylate (Norvasc Tab*) 5 mg PO QPM [facility] Last Admin: 01/12/19 18:42 Dose: Not Given Bisacodyl (Dulcolax Supp*) 10 mg SD DAILY PRN PRN Reason: constipation Cyclobenzaprine HCl (Flexeril Tab*) 5 mg PO TID PRN PRN Reason: SPASMS Last Admin: 01/12/19 23:59 Dose: 5 mg Diphenhydramine HCl (Benadryl Iv*) 25 mg IV Q6H PRN PRN Reason: itching Diphenhydramine HCl (Benadryl Po*) 25 mg PO Q6H PRN PRN Reason: INSOMNIA Docusate Sodium (Colace Cap*) 100 mg PO BID [facility] Last Admin: 01/13/19 08:13 Dose: 100 mg Fluticasone Propionate (Flonase Nasal [place] 50mcg*) 1 spray BOTH NARES BID PRN PRN Reason: CONGESTION Heparin Sodium (Porcine) (Heparin Vial(*)) 5,000 units SUBCUT Q8HR [facility] Last Admin: 01/13/19 08:14 Dose: 5,000 units Hydrochlorothiazide (Hydrodiuril Tab*) 12.5 mg PO QPM [facility] Last Admin: 01/12/19 18:42 Dose: Not Given Lactated Ringer's (Lactated Ringers 1000 Ml Bag*) 1,000 mls @ 100 mls/hr IV PER RATE [facility] Last Admin: 01/12/19 22:05 Dose: 100 mls/hr Lactulose (Lactulose*) 30 ml PO Q6H PRN PRN Reason: constipation Levothyroxine Sodium (Synthroid Tab*) 175 mcg PO QPM [facility] Last Admin: 01/12/19 17:18 Dose: 175 mcg Losartan Potassium (Cozaar Tab*) 50 mg PO QPM [facility] Last Admin: 01/12/19 18:42 Dose: Not Given Magnesium Hydroxide (Milk Of Magnesia Liq*) 30 ml PO BID [facility] Last Admin: 01/13/19 08:13 Dose: Not Given Magnesium Hydroxide (Milk Of Magnesia Liq*) 30 ml PO Q6H PRN PRN Reason: constipation Morphine Sulfate (Morphine 4 Mg/Ml Vial (1 Ml)) 2 mg IV Q2H PRN PRN Reason: PAIN Last Admin: 01/12/19 23:59 Dose: 2 mg Pto: Zinc Gluconate ([Zinc] 50 Mg) 50 mg PO QPM [facility] Last Admin: 01/12/19 17:23 Dose: Not Given Ondansetron HCl (Zofran Inj*) 4 mg IV Q6H PRN PRN Reason: nausea Oxybutynin Chloride (Ditropan Tab*) 5 mg PO QPM [facility] Last Admin: 01/12/19 17:19 Dose: 5 mg Oxycodone HCl (Roxycodone Tab*) 10 mg PO Q4H PRN PRN Reason: breakthru pain Last Admin: 01/13/19 03:55 Dose: 10 mg Pharmacy Profile Note (Coumadin Daily Reminder*) 1 note FOLLOW UP 1700 [facility] Last Admin: 01/12/19 17:18 Dose: 1 note Polyethylene Glycol/Electrolytes (Miralax*) 17 gm PO DAILY PRN PRN Reason: Constipation Sertraline HCl (Zoloft*) 100 mg PO QPM [facility] Last Admin: 01/12/19 17:19 Dose: 100 mg Tramadol HCl (Ultram*) 50 mg PO Q6H PRN PRN Reason: PAIN Last Admin: 01/13/19 08:15 Dose: 50 mg Home Medications: Home Medications Medication Instructions Recorded Confirmed Type Fluticasone Propionate (Nasal) 1 spray BOTH NARES BID PRN 03/06/14 01/12/19 History Levothyroxine TAB* 175 mcg PO QPM 03/06/14 01/12/19 History Sertraline* 100 mg PO QPM 03/06/14 01/12/19 History Zinc Gluconate [Zinc] 50 mg PO QPM 04/26/17 01/12/19 History Amlodipine Besylate [Norvasc] 5 mg PO QPM 08/25/18 01/12/19 History Loperamide HCl [Loperamide] 2 mg PO BID WITH MEALS 08/25/18 01/12/19 History Losartan/Hydrochlorothiazide 1 tab PO QPM 08/25/18 01/12/19 History [Losartan-Hctz 50-12.5 mg Tab] Oxybutynin Chloride 5 mg PO QPM 08/25/18 01/12/19 History Allergies: Allergies Allergy/AdvReac Type Severity Reaction Status Date / Time aspirin Allergy Unknown Verified 01/12/19 06:48 Reaction Details Sulfa (Sulfonamide Allergy Rash Verified 01/12/19 06:48 Antibiotics) Objective - Vital Signs Vital Signs: Vital Signs 01/12/19 01/12/19 01/12/19 09:45 09:46 09:51 Temperature 96.8 F Pulse Rate 77 74 Respiratory 10 12 Rate Blood Pressure 107/52 143/71 (mmHg) O2 Sat by Pulse 96 95 Oximetry 01/12/19 01/12/19 01/12/19 09:55 10:00 10:15 Temperature Pulse Rate 72 72 65 Respiratory 12 10 11 Rate Blood Pressure 128/68 142/74 156/80 (mmHg) O2 Sat by Pulse 97 96 97 Oximetry 01/12/19 01/12/19 01/12/19 10:30 10:45 11:00 Temperature 97.5 F Pulse Rate 69 69 65 Respiratory 11 12 15 Rate Blood Pressure 141/79 145/79 135/69 (mmHg) O2 Sat by Pulse 96 95 95 Oximetry 01/12/19 01/12/19 01/12/19 12:00 12:16 12:17 Temperature 96.5 F 97.4 F Pulse Rate 72 69 Respiratory 18 18 18 Rate Blood Pressure 125/61 121/61 (mmHg) O2 Sat by Pulse 92 90 Oximetry 01/12/19 01/12/19 01/12/19 12:56 13:00 13:01 Temperature 97.8 F Pulse Rate 66 Respiratory 18 18 18 Rate Blood Pressure 141/71 (mmHg) O2 Sat by Pulse 98 Oximetry 01/12/19 01/12/19 01/12/19 15:24 15:46 16:34 Temperature 97.4 F Pulse Rate 69 Respiratory 18 Rate Blood Pressure 105/54 (mmHg) O2 Sat by Pulse 98 96 Oximetry 01/12/19 01/12/19 01/12/19 17:23 17:54 19:57 Temperature 97.6 F 97.5 F Pulse Rate 57 56 Respiratory 18 18 18 Rate Blood Pressure 130/61 95/44 (mmHg) O2 Sat by Pulse 95 95 Oximetry 01/12/19 01/12/19 01/12/19 20:09 20:13 20:30 Temperature Pulse Rate Respiratory 18 18 18 Rate Blood Pressure (mmHg) O2 Sat by Pulse Oximetry 01/12/19 01/12/19 01/12/19 22:18 23:06 23:26 Temperature 97.3 F Pulse Rate 58 Respiratory 18 18 17 Rate Blood Pressure 122/58 (mmHg) O2 Sat by Pulse 94 Oximetry 01/12/19 01/13/19 01/13/19 23:59 01:04 01:56 Temperature Pulse Rate Respiratory 18 18 18 Rate Blood Pressure (mmHg) O2 Sat by Pulse Oximetry 01/13/19 01/13/19 01/13/19 02:05 03:55 04:04 Temperature 97.6 F Pulse Rate 62 Respiratory 18 18 16 Rate Blood Pressure 140/61 (mmHg) O2 Sat by Pulse 95 Oximetry 01/13/19 01/13/19 01/13/19 06:28 07:38 08:15 Temperature 99.1 F Pulse Rate 50 Respiratory 18 17 18 Rate Blood Pressure 119/54 (mmHg) O2 Sat by Pulse 98 Oximetry - Intake and Output Intake and Output: Intake & Output 01/10/19 01/11/19 01/12/19 01/13/19 11:59 11:59 11:59 11:59 Intake Total 1900 2687 Output Total 150 1300 Balance 1750 1387 Weight 241 lb Intake: IV Fluids 1900 1587 ABX - CEFAZOLIN 46 LR 1900 1541 Oral 1100 Output: Urine 600 Medina 100 700 Estimated Blood Loss 50 Other: Estimated Void Small # Bowel Movements 0 ADLs: Meal Record Start: 01/12/19 11: 03 Freq: Status: Active Protocol: Created 01/12/19 11:03 [id number] (Rec: 01/12/19 11:03 [id number]) Intake and Output Start: 01/12/19 09: 44 Freq: 06,14,2200 Status: Active Protocol: Created 01/12/19 09:55 [id number] (Rec: 01/12/19 09:55 BKG [id number]) Document 01/12/19 14:45 [id number] (Rec: 01/12/19 14:46 [id number] [id number]) Document 01/12/19 17:40 [id number] (Rec: 01/12/19 17:41 [id number] [id number]) Document 01/12/19 21:36 [id number] (Rec: 01/12/19 21:38 [id number] SSU-C03) Document 01/12/19 23:00 [id number] (Rec: 01/12/19 23:01 [id number] SSU-M07) Document 01/13/19 05:18 [id number] (Rec: 01/13/19 05:18 [id number] SSU-M13) Document 01/13/19 07:39 [id number] (Rec: 01/13/19 07:39 [id number] [id number]) Intake and Output Start: 01/12/19 11: 03 Freq: DAILY@0600,1400,2200 Status: Active Protocol: Created 01/12/19 11:03 [id number] (Rec: 01/12/19 11:03 [id number]) - Physical Exam General Physical Exam Comment: Warm and well perfused - in no distress. Obese General: No Cyanosis, No Anemia, No Jaundice, No Clubbing Endocrine: Yes Central Obesity Lungs and Chest: Yes: Chest Expansion Full, Chest Expansion Symetrica, Percussion Note Resonant, Vessicular Breath Sounds. No: Crackles, Wheezes, Respiratory Distress Heart Rate and Rhythm: Regular JVP: Not Elevated Additional Cardiovascular: Yes: Normal Heart Sounds. No: Heart Murmur, Pedal Edema Abdominal Exam: Yes: Soft, Bowel Sounds Present. No: Distention, Abdominal Mass Results - Results Lab Results: Laboratory Results - last 24 hr 01/13/19 01/13/19 01/13/19 04:46 04:46 04:46 Hgb 12.6 Hct 37 Plt Count 150 MPV 9.4 INR (Anticoag Therapy) 1.03 Sodium 138 Potassium 3.9 Chloride 105 Carbon Dioxide 27 Anion Gap 6 BUN 18 Creatinine 0.83 Est GFR ( Amer) 82.0 Est GFR (Non-Af Amer) 67.8 BUN/Creatinine Ratio 21.7 H Glucose 134 H Calcium 9.9 Assessment - Problem List Assessment: Patient Problems History of total knee arthroplasty (Acute) Atherosclerosis (Chronic) BMI 40.0-44.9, adult (Chronic) Depression (Chronic) Essential (primary) hypertension (Chronic) GERD (gastroesophageal reflux disease) (Chronic) Hypothyroid (Chronic) Nephrolithiasis (Chronic) Osteoarthritis of right hip (Chronic) Prediabetes (Chronic) Primary hyperparathyroidism (Chronic) Sleep apnea (Chronic) Plan: History of total knee arthroplasty (Acute) She is doing well post-operatively. She is eating and drinking. She has walked yesterday and her Medina was removed. She needs to mobilize today now the spinal has worn off. She may be able to go home today. She is likely to receive warfarin per Dr. Fiore Atherosclerosis (Chronic) No complications BMI 40.0-44.9, adult (Chronic) Custodial issue Depression (Chronic) This is controlled Essential (primary) hypertension (Chronic) BP on target GERD (gastroesophageal reflux disease) (Chronic) no symptoms with treatment Hypothyroid (Chronic) continue current Rx Nephrolithiasis (Chronic) Inactive Osteoarthritis of right hip (Chronic) She now has pain in her right hip - this may require a MITALI in due course Prediabetes (Chronic) Not exacerbated particularly Primary hyperparathyroidism (Chronic) ongoing comorbidity Sleep apnea (Chronic) To continue CPAP She is doing well from a medical point of view. I have no particular requirement for any new medical interventions. From my point of view she can be discharged home.
--- NOTE | 2019-01-13 09:23 | PN ---
Progress Note - Progress Note Date of Service: 01/13/19 SOAP: Subjective: []Pt seen at bedside. She is progressing towards goals with PT. Denies CP, SOB, dizziness, nausea. Knee remains painful though tolerable. Objective: []General: NAD, appears well RLE: Right knee dressing CDI, thigh soft, DP2+, DF/PF intact, sensation intact to light touch distally Calves supple and nontender without erythema, edema or palpable cords Assessment: []POD 1 SP right total knee replacement Plan: []WBAT PT/OT Heparin and warfarin, warfarin 8 mg today Possible DC home later today Vital Signs Temp 99.1 F 01/13/19 07:38 Pulse 50 01/13/19 07:38 Resp 18 01/13/19 08:15 BP 119/54 01/13/19 07:38 Pulse Ox 98 01/13/19 07:38 Intake & Output 01/12/19 01/13/19 01/13/19 18:59 06:59 18:59 Intake Total 1900 2155 1432 Output Total 950 200 300 Balance 950 1955 1132 Intake: IV Fluids 1900 1055 532 ABX - CEFAZOLIN 46 LR 1900 1055 486 Oral 1100 900 Output: Urine 100 200 300 [place] 800 Estimated Blood Loss 50 Other: Estimated Void Small # Bowel Movements 0 Laboratory Last Values Hgb 12.6 g/dL (12.0-16.0) 01/13/19 04:46 Hct 37 % (35-47) 01/13/19 04:46 Plt Count 150 10^3/uL (150-450) 01/13/19 04:46 MPV 9.4 fL (7.4-10.4) 01/13/19 04:46 INR (Anticoag Therapy) 1.03 (0.82-1.09) 01/13/19 04:46 Sodium 138 mmol/L (135-145) 01/13/19 04:46 Potassium 3.9 mmol/L (3.5-5.0) 01/13/19 04:46 Chloride 105 mmol/L (101-111) 01/13/19 04:46 Carbon Dioxide 27 mmol/L (22-32) 01/13/19 04:46 Anion Gap 6 mmol/L (2-11) 01/13/19 04:46 BUN 18 mg/dL (6-24) 01/13/19 04:46 Creatinine 0.83 mg/dL (0.51-0.95) 01/13/19 04:46 Est GFR ( Amer) 82.0 (>60) 01/13/19 04:46 Est GFR (Non-Af Amer) 67.8 (>60) 01/13/19 04:46 BUN/Creatinine Ratio 21.7 (8-20) H 01/13/19 04:46 Glucose 134 mg/dL (70-100) H 01/13/19 04:46 Calcium 9.9 mg/dL (8.6-10.3) 01/13/19 04:46
[2019-01-13] MEDS ORDERED: Ketorolac INJ* 15 MG/ML 1 ML VIAL IV PUSH PRN (16:12)
[2019-01-13] MEDS ORDERED: Warfarin TAB(*) 4 MG PO ONE (17:00)
[2019-01-13] MEDS: amLODIPine TAB* 5 MG PO SCH (17:43)
[2019-01-13] MEDS: Hydrochlorothiazide TAB* 25 MG PO SCH (17:44)
[2019-01-13] MEDS: Levothyroxine TAB* 175 MCG TAB PO SCH (17:45)
[2019-01-13] MEDS: Losartan TAB* 25 MG PO SCH (17:45)
[2019-01-13] MEDS: Oxybutynin TAB* 5 MG PO SCH (17:46)
[2019-01-13] MEDS: Sertraline* 100 MG TAB PO SCH (17:46)
[2019-01-13] MEDS: ZINC GLUCONATE 50 MG PO SCH (17:46)
[2019-01-14] MEDS: Acetaminophen TAB* 325 MG PO SCH (05:42)
[2019-01-14] MEDS: traMADol TAB* 50 MG PO PRN ×2 (05:42→11:59)
[2019-01-14] MEDS: Heparin VIAL(*) 5000 UNITS/ML VIAL (FIVE THOUSAND) SUBCUT SCH (05:45)
[2019-01-14 06:19] LABS: Hematocrit 37 % (35-47); Hemoglobin 12.5 g/dL (12.0-16.0); Mean Platelet Volume 9.8 fL (7.4-10.4); Platelet Count 142 10^3/uL (150-450)
--- NOTE | 2019-01-14 07:37 | PN ---
Progress Note - Progress Note Date of Service: 01/14/19 SOAP: Subjective: [] Pt seen at bedside. She feels well and desires DC to home. Denies any chest pain, shortness of breath, dizziness, nausea. Objective: []General: NAD, appears well RLE: Right knee dressing changed and incision is CDI, thigh soft, DP2+, DF/PF intact, sensation intact to light touch distally Calves supple and nontender without erythema, edema or palpable cords Assessment: []POD 2 SP right total knee replacement Plan: []WBAT PT/OT Heparin and warfarin, warfarin 6 mg today. ASA 325 mg po daily until INR is therapeutic DC home later today Laboratory Last Values Hgb 12.5 g/dL (12.0-16.0) 01/14/19 05:56 Hct 37 % (35-47) 01/14/19 05:56 Plt Count 142 10^3/uL (150-450) L 01/14/19 05:56 MPV 9.8 fL (7.4-10.4) 01/14/19 05:56 INR (Anticoag Therapy) 1.67 (0.82-1.09) H 01/14/19 09:08 Sodium 138 mmol/L (135-145) 01/13/19 04:46 Potassium 3.9 mmol/L (3.5-5.0) 01/13/19 04:46 Chloride 105 mmol/L (101-111) 01/13/19 04:46 Carbon Dioxide 27 mmol/L (22-32) 01/13/19 04:46 Anion Gap 6 mmol/L (2-11) 01/13/19 04:46 BUN 18 mg/dL (6-24) 01/13/19 04:46 Creatinine 0.83 mg/dL (0.51-0.95) 01/13/19 04:46 Est GFR ( Amer) 82.0 (>60) 01/13/19 04:46 Est GFR (Non-Af Amer) 67.8 (>60) 01/13/19 04:46 BUN/Creatinine Ratio 21.7 (8-20) H 01/13/19 04:46 Glucose 134 mg/dL (70-100) H 01/13/19 04:46 Calcium 9.9 mg/dL (8.6-10.3) 01/13/19 04:46 Vital Signs Temp 98.3 F 01/14/19 04:01 Pulse 62 01/14/19 04:01 Resp 18 01/14/19 05:42 BP 117/60 01/14/19 04:01 Pulse Ox 98 01/14/19 04:01 Intake & Output 01/13/19 01/14/19 01/14/19 18:59 06:59 18:59 Intake Total 1981 2049 Output Total 1400 1900 300 Balance 582 150 -300 Intake: IV Fluids 532 ABX - CEFAZOLIN 46 LR 486 Oral 1449 2049 Output: Urine 1400 1900 300 Other: Date of Last Bowel 01/14/19 Movement # Bowel Movements 1 Estimated Stool Amount Medium
[2019-01-14 07:40] VITALS: BP 128/65
[2019-01-14] MEDS: oxyCODONE TAB* 5 MG TAB PO PRN (08:25)
[2019-01-14] MEDS: Docusate CAP* 100 MG PO SCH (08:25)
[2019-01-14] MEDS: Magnesium Hydroxide LIQ* 30 ML UDC PO SCH (08:27)
[2019-01-14 09:49] LABS: INR 1.67 (0.82-1.09)
--- NOTE | 2019-01-14 11:24 | DS ---
Orthopedic Discharge Summary - Discharge Summary Date of Admission:01/12/19 Date of Discharge: 01/14/19 Date of Surgery: 01/12/19 Attending Orthopedic Provider: Dr Fiore Pre-operative Diagnosis: right knee osteoarthritis Operative Procedure: right total knee replacement Disposition of Patient: home Condition of Patient: stable History: RUBIA LANG is a 73 year old F with years of increasingly severe right knee pain. Patient has failed conservative management and has elected to undergo a right total knee replacement Hospital Course: RUBIA was admitted to [facility] on 01/12/19. Patient underwent a right total knee replacement without complication followed by a brief recovery in PACU and transfer to the Short Stay Surgical Unit in stable condition. Dr Cortes, physical therapy and occupational therapy also participated in this patients care. Post-op day 1: patient was alert and in no acute distress. Dressing was clean, dry and intact. Operative extremity dorsiflexion and plantarflexion intact, sensation intact to light touch distally , DP2+. Post-op day two: dressing was changed, incision was clean, dry and intact. Patient was deemed to be medically and orthopedically stable for discharge. Physical therapy goals were met. Her aspirin allergy is "ringing ears " only while on the medication which resolves after use. She prefers to use an aspirin table to bridge rather than lovenox. Home Medications Medication Instructions Recorded Confirmed Type Fluticasone Propionate (Nasal) 1 spray BOTH NARES BID PRN 03/06/14 01/12/19 History Levothyroxine TAB* 175 mcg PO QPM 03/06/14 01/12/19 History Sertraline* 100 mg PO QPM 03/06/14 01/12/19 History Zinc Gluconate [Zinc] 50 mg PO QPM 04/26/17 01/12/19 History Amlodipine Besylate [Norvasc] 5 mg PO QPM 08/25/18 01/12/19 History Loperamide HCl [Loperamide] 2 mg PO BID WITH MEALS 08/25/18 01/12/19 History Losartan/Hydrochlorothiazide 1 tab PO QPM 08/25/18 01/12/19 History [Losartan-Hctz 50-12.5 mg Tab] Oxybutynin Chloride 5 mg PO QPM 08/25/18 01/12/19 History Acetaminophen TAB* [Tylenol TAB*] 975 mg PO Q8HR tab 01/14/19 Rx Docusate CAP* [Colace Cap*] 100 mg PO BID PRN #90 cap 01/14/19 Rx Warfarin TAB(*) [Coumadin TAB(*)] 2 mg PO DAILY #90 tab 01/14/19 Rx oxyCODONE TAB* [Roxycodone TAB 5 10 mg PO Q4H PRN #10 tab MDD 4 01/14/19 Rx mg*] traMADol TAB* [Ultram*] 50 mg PO Q6H PRN #56 tab MDD 8 01/14/19 Rx Discharge Instructions following Orthopedic Surgery: Activity: * Weight Bearing as tolerated * Continue physical therapy and occupational therapy exercises as shown * Start outpatient physical therapy Wound care: * OK to shower on post-op day 3, no bathing, swimming, or submerging wound. * Use gentle soap, pat dry. Cover with gauze, VARUN wrap or tape. Call Orthopedic office for: * Increased drainage * Redness * Increased pain * Fever Go to ER with shortness of breath or chest pain. Diet: * Regular diet * Increase fluids and fiber to prevent constipation. * Continue to use stool softeners, call office if no bowel motion within 48 hours. Medications See Home Medication List in your packet for medications that you should take after discharge. DVT Prophylaxis: This medication increases bleeding tendency Coumadin Dosing: * Please note that you have been given 2 mg tablets. * Visiting home nurse to draw blood work for INR on Saturday and . * You will be provided with dose instructions on Mondays and . * If you do not receive dosing instruction on dosing, please call our office right away. Please mariluz dosing instructions on your calendar as they are provided to you. * Dosin mg 01/14/19. on 01/15/19 please repeat INR blood draw for further dosing instructions. Call orthopedic office if you do not receive dosing instructions. Your INR has not yet reached a therapeutic range. Please take one 325 mg aspirin daily until INR is between 2-3. Ortho office to tell you when it is okay to stop the aspirin and continue with coumadin only. Pain Control: tramadol 50 mg 1-2 tabs every 6 hours as needed for pain, max of 8 tabs per day. hold for sedation. may alternate with oxycodone for severe pain. oxycodone 1-2 tabs by mouth every 4-6 hours as needed for pain. Maximum of 4 tabs per day. hold for sedation. wean first from oxycodone to tramadol alone and then wean off of tramadol to over the counter tylenol as pain allows. Maximum daily dose of Tylenol is 4000 mg from all sources. Antibiotics are required prior to any dental work. FOLLOW UP: Follow up with Dr. Fiore within 4 weeks, sooner with concerns call for appointment Please call our office with any questions or concerns ([phone])
== END 2019-01-14 12:25 | disposition home health service (06) | DRG 470 ==
LOC: AA 05:52 → SSU 09:44
PROVIDERS: ADMIT Orthopaedic Surgery; ATTEND Orthopaedic Surgery
PROC: 0SRD0J9 Replacement of Left Knee Joint with Synthetic Substitute, Cemented, Open Approach (ICD-10-PCS; principal; 2019-01-12 07:30)
DX: M17.11 Unilateral primary osteoarthritis, right knee (principal); E03.9 Hypothyroidism, unspecified; I10 Essential (primary) hypertension; F32.9 Major depressive disorder, single episode, unspecified; K21.9 Gastro-esophageal reflux disease without esophagitis; F41.9 Anxiety disorder, unspecified; N20.0 Calculus of kidney; R53.83 Other fatigue; R19.7 Diarrhea, unspecified; R21 Rash and other nonspecific skin eruption; I25.10 Atherosclerotic heart disease of native coronary artery without angina pectoris; E66.01 Morbid (severe) obesity due to excess calories; M16.11 Unilateral primary osteoarthritis, right hip; R73.03 Prediabetes; E21.0 Primary hyperparathyroidism; G47.33 Obstructive sleep apnea (adult) (pediatric); Z68.41 Body mass index [BMI] 40.0-44.9, adult; Z88.2 Allergy status to sulfonamides; Z88.0 Allergy status to penicillin; Z90.710 Acquired absence of both cervix and uterus; Z83.3 Family history of diabetes mellitus; Z98.42 Cataract extraction status, left eye; Z98.41 Cataract extraction status, right eye
CPT/HCPCS: 36415; 80048; 85014; 85018; 85049; 85610; A9270-GY; C1776; G8978-GP-CJ; G8979-GP-CI; J0690; J1200; J1644; J1885; J2001; J2250; J2270; J2795; J3010; J3490